=== PATIENT | male | born 1965 | race Caucasian/White ===

== ENCOUNTER 2018-05-14 19:16 | Emergency (ER) | payer BC ==
[~2018-05-14] VITALS: Ht 175.3 cm; Wt 83.9 kg
[2018-05-14 19:51] VITALS: BP_SYST 119
[2018-05-14 22:51] VITALS: BP_SYST 124
== END 2018-05-14 22:51 | disposition home or self-care (01) ==
LOC: SED 19:16
DX: B02.9 Zoster without complications (principal); Z90.81 Acquired absence of spleen; Z88.2 Allergy status to sulfonamides; Z88.6 Allergy status to analgesic agent
CPT/HCPCS: 99283